=== PATIENT | male | born 1970 | race Two or more races ===

== ENCOUNTER 2020-09-24 20:58 | Emergency (ER) | payer OTHER ==
[~2020-09-24] VITALS: Ht 172.7 cm; Wt 91.6 kg
[2020-09-24] MEDS ORDERED: SYNJARDY XR 101 EACH (21:07)
[2020-09-24] MEDS ORDERED: COZAAR100 MG (21:08)
[2020-09-24] MEDS ORDERED: LOVAZA1 GM (21:08)
[2020-09-24] MEDS ORDERED: TENORETIC 1001 EACH (21:08)
[2020-09-24] MEDS ORDERED: ZOCOR20 MG (21:11)
[2020-09-24] MEDS ORDERED: PREPARATION H1 EAC2 RECTAL (22:07)
== END 2020-09-24 22:24 | disposition home or self-care (01) ==
LOC: ER 20:58
DX: K64.4 Residual hemorrhoidal skin tags (principal)

== ENCOUNTER 2020-10-08 05:45 | Day surgery (SDC) | payer OTHER ==
[~2020-10-08 05:45] MED LIST: COZAAR100 MG; LOVAZA1 GM; PREPARATION H1 EAC2 RECTAL; SYNJARDY XR 101 EACH; TENORETIC 1001 EACH; ZOCOR20 MG
[2020-10-08] MEDS ORDERED: PERCOCET 5-3251 EACH PO (09:08)
[2020-10-08] MEDS ORDERED: RECTICARE30 GM TOP (09:08)
== END 2020-10-08 13:25 | disposition home or self-care (01) ==
LOC: CIR.AMB 05:45
PROVIDERS: ATTEND Surgery
DX: K64.4 Residual hemorrhoidal skin tags (principal); K60.1 Chronic anal fissure; K64.8 Other hemorrhoids; Z20.822 Contact with and (suspected) exposure to COVID-19

== ENCOUNTER 2020-10-11 04:24 | Emergency (ER) | payer OTHER ==
[~2020-10-11] VITALS: Ht 175.3 cm; Wt 93.0 kg
[~2020-10-11 04:24] MED LIST changes: +PERCOCET 5-3251 EACH PO; +RECTICARE30 GM TOP
== END 2020-10-11 09:18 | disposition home or self-care (01) ==
LOC: ER 04:24
DX: R33.8 Other retention of urine (principal)